=== PATIENT | female | born 1990 | race Two or more races ===

== ENCOUNTER 2019-12-01 01:05 | Emergency (ER) | payer SELFPAY ==
[~2019-12-01] VITALS: Ht 160 cm; Wt 49.9 kg
--- NOTE | 2019-12-01 01:05 | NUR ---
PT [facility] AND [employer] FROM HOME FOR BIZZARE BEHAVIOR, FLIGHTS OF IDEAS, AND AGGRESSIVE BEHAVIOR. PT ARRIVED TO [facility] ER VERBALLY ABUSIVE TOWARDS STAFF. PER RA, POSSIBLE INGESTION OF BLEACH. PT DENIES SI/HI AT THIS TIME. PT AAOX4. VITAL SIGNS STABLE. RESPIRATIONS EVEN AND UNLABORED. SKIN INTACT. NO ACUTE DISTRESS NOTED AT THIS TIME. SITTER AT BEDSIDE. [employer] AT BEDSIDE. WILL CONTINUE TO MONITOR
--- NOTE | 2019-12-01 01:55 | NUR ---
VERONICA (BROTHER) CONTACT INFORMATION: [phone] Addendum: 12/01/19 at 0256 by ALLEN PER BROTHER, PT HAS HISTORY OF PSYCHOTIC EPISODES BUT "IT'S BEEN A WHILE SINCE HER LAST ONE". HISTORY OF BIPOLAR AND UNAWARE IF PT HAS BEEN COMPLIANT WITH MEDICATIONS. BROTHER STATES PT HAS BEEN STRESSED WITH WORK AND RELATIONSHIP ISSUES. EARLIER TODAY, ROOMMATE NOTED BIZZARE BEHAVIOR AND WAS FOUND "POURING BLEACH OUT ON FLOOR THEN SAT ON FLOOR WITH CUP STATING SHE DRANK SOME OF THE BLEACH". AWARE.
[2019-12-01] MEDS ORDERED: OLANZAPINE 10 MG VIAL IM ONE ×2 (02:00→02:10)
[2019-12-01 02:26] LABS: BASOPHILS % (AUTO) 0.4 % (0.0-2.0); CALCIUM, SERUM 9.3 mg/dL (8.5-10.1); CARBON DIOXIDE 21 mmol/L (21-32); CHLORIDE 103 mmol/L (98-107); HEMATOCRIT 38 % (33-45); HEMOGLOBIN 12.2 g/dL (11.5-14.8); LYMPHOCYTES # (AUTO) 1.5 /CMM (0.8-4.8); LYMPHOCYTES % (AUTO) 12.2 % (20.0-44.0); MEAN CORPUSCULAR HGB CONC 32 g/dl (31.0-36.0); MEAN CORPUSCULAR VOLUME 88 fL (82-100); MONOCYTES # (AUTO) 1.1 /CMM (0.1-1.30); MONOCYTES % (AUTO) 8.9 % (2.0-12.0); NEUTROPHILS # (AUTO) 9.3 /CMM (1.8-8.9); NEUTROPHILS % (AUTO) 78.5 % (43.0-81.0); PLATELET COUNT (AUTO) 338 /CMM (150-450); POTASSIUM 4.4 mmol/L (3.5-5.1); SODIUM SERUM 142 mmol/L (136-145); UREA NITROGEN, BLOOD 21 mg/dL (7-18); WHITE BLOOD COUNT (AUTO) 11.9 K/uL (4.3-11.0)
[2019-12-01 02:32] LABS: ALANINE AMINOTRANSFERASE 22 U/L (12-78); ALBUMIN 4.4 g/dL (3.4-5.0); ALCOHOL, BLOOD < 3 mg/dL (0-0); ALKALINE PHOSPHATASE 63 U/L (46-116); ASPARTATE AMINOTRANSFERASE 25 U/L (15-37); BILIRUBIN,DIRECT 0.1 mg/dL (0.0-0.2); BILIRUBIN,TOTAL 0.5 mg/dL (0.2-1.0); TOTAL PROTEIN, SERUM 8.2 g/dL (6.4-8.2)
[2019-12-01 02:33] LABS: SALICYLATE 1.3 mg/dL (2.8-20.0)
[2019-12-01 02:38] LABS: ACETAMINOPHEN 0 ug/ml (10-30)
--- NOTE | 2019-12-01 04:12 | NUR ---
PT CALM AND COOPERATIVE. AMBULATORY TO RESTROOM WITH STEADY GAIT. URINE COLLECTED AND SENT TO LAB
[2019-12-01 04:21] LABS: APPEARANCE,URINE CLEAR (CLEAR); BILIRUBIN,URINE SMALL (NEGATIVE); BLOOD, URINE NEGATIVE Ery/uL (NEGATIVE); COLOR,URINE YELLOW (YELLOW); KETONES,URINE >=80 (NEGATIVE); LEUKOCYTE ESTERASE ,URINE NEGATIVE (NEGATIVE); NITRITE, URINE NEGATIVE (NEGATIVE); PROTEIN,URINE TRACE mg/dl (NEGATIVE); UGLUCOSE NEGATIVE (NEGATIVE); UROBILINOGEN,URINE 0.2 EU/dL (0.2)
[2019-12-01 04:35] LABS: BACTERIA,URINE Few /HPF (None Seen); RBC,URINE 0-2 /HPF (0-2); SQUAMOUS EPITHELIAL CELL,UR Few /HPF (None Seen); WBC,URINE 0-2 /HPF (0-3)
--- NOTE | 2019-12-01 05:23 | NUR ---
Patient is resting comfortably in bed. Easily aroused. VSS.
--- NOTE | 2019-12-01 06:00 | NUR ---
BARBIE HERNANDES AT BEDSIDE FOR EVALUATION
--- NOTE | 2019-12-01 11:54 | NUR ---
PLEASE CALL ESTELA (FAMILY FRIEND) FOR DISCHARGE AT [phone]
--- NOTE | 2019-12-01 12:05 | NUR ---
FRIEND ESTELA WILL DRY WALL INSTALLATIONS MECHANIC PATIENT. ETA 15-20MIN
--- NOTE | 2019-12-01 12:57 | NUR ---
Patient picked up by Carie. Assisted patient in waiting room in stable condition. Written and verbal after care instructions given. Patient verbalizes understanding of instruction.
[2019-12-01 12:58] VITALS: BP 109/57
== END 2019-12-01 12:59 | disposition home or self-care (01) ==
LOC: ER 01:09
DX: F23 Brief psychotic disorder (principal); F31.9 Bipolar disorder, unspecified
CPT/HCPCS: 36415; 80048; 80076; 80305; 80307; 80329; 81001; 84703; 85025; 96372; 99285; G0480; J3490; 81000-TC